=== PATIENT | female | born 1970 | race Caucasian/White ===

== ENCOUNTER 2022-01-13 06:53 | Day surgery (SDC) | payer SELFPAY ==
[~2022-01-13] VITALS: Ht 149.9 cm; Wt 53.5 kg
[~2022-01-13 06:53] MED LIST: D3 HIGH POT5000 UNIT; L-LYSINE500 M2 PO; MAGNESIUM500 M3; PHOSPHORUS; PROBIOTIC ACIDO1 CA1; SALINE; VITAMIN C500 MG PO; [UNRECOGNIZED DRUG - OTHER]
[2022-01-13 10:22] VITALS: BP 108/85
== END 2022-01-13 09:24 | disposition home or self-care (01) | DRG 395 ==
LOC: ORM 06:53
PROVIDERS: ATTEND Surgery
PROC: 0DBN8ZX Excision of Sigmoid Colon, Via Natural or Artificial Opening Endoscopic, Diagnostic (ICD-10-PCS; principal; 2022-01-13)
DX: D12.5 Benign neoplasm of sigmoid colon (principal); K64.8 Other hemorrhoids; K64.4 Residual hemorrhoidal skin tags; F17.200 Nicotine dependence, unspecified, uncomplicated